=== PATIENT | male | born 1970 | race Caucasian/White ===

== ENCOUNTER → 2022-05-11 | Day surgery (SDC) | payer BC ==
[~2022-05-11] VITALS: Ht 175.3 cm; Wt 80.7 kg
[~2022-05-11] MED LIST: DEXILANT60 MG PO; ENALAPRIL MALEA20 MG PO; GLUCOPHAGE 500500 MG PO; LEVOTHYROXINE125 MC1 PO; NORVASC5 MG PO; VITAMIN C1000 MG PO; VITAMIN D3250 MCG PO; ZIAC 5-6.25 MG1 EACH PO
[2022-05-11 06:30] LABS: HEMOGLOBIN 13.8 gm/dl (14.0-17.5); WHITE BLOOD COUNT 6.2 K/UL (4.5-11.0)
[2022-05-11 06:51] LABS: BUN/CREATININE RATIO 13 (0-10)
== END | disposition home or self-care (01) ==
LOC: OR 05:22
PROVIDERS: Orthopaedic Surgery
DX: S46.211A Strain of muscle, fascia and tendon of other parts of biceps, right arm, initial encounter (principal); X58.XXXA Exposure to other specified factors, initial encounter; G89.18 Other acute postprocedural pain; I10 Essential (primary) hypertension; K21.9 Gastro-esophageal reflux disease without esophagitis; E11.9 Type 2 diabetes mellitus without complications; E03.9 Hypothyroidism, unspecified; E66.9 Obesity, unspecified; Z79.84 Long term (current) use of oral hypoglycemic drugs; Z79.899 Other long term (current) drug therapy
CPT/HCPCS: 36415; 73070; 76000; 80048; 82962; 85027; 93005; C1713; J0171; J0690; J1100; J2001; J2250; J2405; J2704; J2795; J3010